=== PATIENT | female | born 1950 | race Caucasian/White ===

== ENCOUNTER 2023-01-19 09:00 | Outpatient (RCR) | payer MEDICARE, SELFPAY ==
[2022-11-25 11:08] VITALS: BP 138/80; PULSE 62; O2SAT 95
== END 2023-10-24 12:13 | disposition home or self-care (01) ==
LOC: HO.PTWFD 09:00
PROVIDERS: PCP Physician Assistant Medical; Visit Provider Physician Assistant Medical
DX: M54.2 Cervicalgia (principal)
CPT/HCPCS: 97012; 97014; 97035; 97110; 97140; 97162